=== PATIENT | male | born 1985 | race Two or more races ===

== ENCOUNTER 2021-12-18 15:14 | Emergency (ER) | payer SELFPAY ==
[~2021-12-18] VITALS: Ht 167.6 cm; Wt 63.0 kg
[2021-12-18] MEDS ORDERED: METOCLOPRAMIDE HCL 10MG/2ML VIAL IV STA (15:21)
[2021-12-18] MEDS ORDERED: FAMOTIDINE 20MG/2ML VIAL IV STA (15:21)
[2021-12-18] MEDS ORDERED: SODIUM CHLORIDE 0.9% 1,000 ML IV ONE (15:30)
[2021-12-18 16:20] LABS: BASOPHILS % 0.7 % (0.0-2.0); EOSINOPHILS % 1.5 % (0.0-5.0); HEMATOCRIT. 44.5 % (42.0-52.0); HEMOGLOBIN. 15.3 g/dL (14.0-18.0); LYMPHOCYTES % 26.2 % (20.0-50.0); MEAN CORPUSCULAR HEMOGLOBIN 30.1 pg (28.0-32.0); MEAN CORPUSCULAR VOLUME 87.5 fL (80.0-94.0); MEAN PLATELET VOLUME 7.4 fl (7.4-10.4); NEUTROPHILS % 61.6 % (40.0-76.0); PLATELET 276 x1000/uL (130-400); RED BLOOD CELL COUNT 5.08 mill/uL (4.7-6.1); RED CELL DISTRIBUTION WIDTH 13.3 % (11.6-14.6)
[2021-12-18 16:24] LABS: CHLORIDE 106 mEq/L (98-107)
[2021-12-18] MEDS ORDERED: LORAZEPAM 2MG/ML CPJ IV ONE (16:30)
[2021-12-18] MEDS ORDERED: ONDANSETRON 4MG ODT PO ONE (18:45)
[2021-12-18 18:52] VITALS: BP 115/79
== END 2021-12-18 19:00 | disposition home or self-care (01) ==
LOC: ER 15:14
DX: R10.13 Epigastric pain (principal); F10.10 Alcohol abuse, uncomplicated; Y90.9 Presence of alcohol in blood, level not specified; R73.9 Hyperglycemia, unspecified; R03.0 Elevated blood-pressure reading, without diagnosis of hypertension; F41.0 Panic disorder [episodic paroxysmal anxiety]; Z71.41 Alcohol abuse counseling and surveillance of alcoholic
CPT/HCPCS: 36415; 71045; 80053; 83690; 85025; 96361; 96374; 96375; 99284; J2060; J2765; J3490; J7030; Q0162; Z7610